=== PATIENT | female | born 1960 | race Two or more races ===

== ENCOUNTER 2022-03-05 10:14 | Inpatient (IN) | payer OTHER ==
[~2022-03-05] VITALS: Ht 157.5 cm; Wt 61.2 kg
[2022-03-05] MEDS ORDERED: SYNTHROID50 MCG PO (10:22)
--- NOTE | 2022-03-05 10:23 | NUR ---
SE RECIBE PTE ALERTA Y ORIENTADA X3,REFIERE TENER DOLOR EN EL COSTADO OSCAR SE LE IRRADIA HACIA LA EDGARNA PHYLICIA.
--- NOTE | 2022-03-05 11:40 | NUR ---
PACIENTE EVALUADA POR DR WELCH QUIEN ORDENA TX MEDICO. SE ORIENTA A PTE SOBRE TX MEDICO Y LA MISMA REFIERE ENTENDER. SE REALIZAN MUESTRAS DE LABORATORIO Y ADMINISTRACION DE MEDICAMENTOS SUNSHINE ORDEN MEDICA BAJO MEDIDAS ASEPTICAS. PTE EN ESPERA DE CT ABD. SE MANTIENE EN ESPERA DE RESULTADOS.
--- NOTE | 2022-03-05 14:15 | NUR ---
PACIENTE EVALUADA POR DR. WELCH QUIEN ORDENA TX MEDICO. SE EDUCA A PTE SOBRE TX QUIEN INDICA ENTENDER Y NO TENER DUDAS. INDICA TENER UN DOLOR 8/10 EN ESCALA NUMERICA. SE ADMINISTRA MEDICAMENTO EN EL GLUTEO IZQ UTILIZANDO MEDIDAS ASEPTICAS.
--- NOTE | 2022-03-05 15:20 | NUR ---
SE RECIBE PTE ALERTA Y ORIENTADA X 3 ESFERAS EN CAMA CON BARANDAS ELEVADAS POR SEGURIDAD Y AL NIVEL MAS BAJO. PRESENTANDO BUEN PATRON RESPIRATORIO. RECIBIENDO IV'S 0.9NSS BAJANDO A 100ML/HR AREA DE VENOPUNCION MIKAEL DE EDEMA Y ERITEMA. PENDIENTE CONSULTA CON DR.ESTEBAN IVEY.
[2022-03-06] MEDS ORDERED: ALENDRONATE SOD70 MG (10:21)
== END 2022-03-06 16:55 | disposition home or self-care (01) | DRG 694 ==
LOC: ER 10:14 → SURH 21:42
PROVIDERS: ADMIT Internal Medicine; ATTEND Internal Medicine
PROC: BW21ZZZ Computerized Tomography (CT Scan) of Abdomen and Pelvis (ICD-10-PCS; principal; 2022-03-05)
PROC: BR39ZZZ Magnetic Resonance Imaging (MRI) of Lumbar Spine (ICD-10-PCS; 2022-03-05)
DX: N23 Unspecified renal colic (principal); E87.1 Hypo-osmolality and hyponatremia; E03.8 Other specified hypothyroidism; Z20.822 Contact with and (suspected) exposure to COVID-19; M54.89 Other dorsalgia
CPT/HCPCS: 72148